=== PATIENT | female | born 1955 | race Caucasian/White ===

== ENCOUNTER 2019-01-26 07:58 | Outpatient (CLI) | payer OTHER | END 2019-01-26 08:06 | disposition home or self-care (01) | LOC: SONOGRAMA 07:58 → MAMO-SONO 08:15 | DX: M25.511 Pain in right shoulder (principal) ==

== ENCOUNTER 2022-05-15 08:14 | Outpatient (CLI) | payer OTHER | END 2022-05-15 08:16 | disposition home or self-care (01) | LOC: NUCLEAR 08:14 | PROVIDERS: ATTEND Thoracic Surgery (Cardiothoracic Vascular Surgery) | DX: I73.9 Peripheral vascular disease, unspecified (principal) ==

== ENCOUNTER 2025-01-23 10:07 | Outpatient (CLI) | payer OTHER ==
[~2025-01-23 10:07] MED LIST: ALTACE2.5 MG; FOLIC ACID0.8 M1; METHOTREXATE; PRENISONE; VALSARTAN80 MG; VITAL-D RX TAB1 EACH
[2025-01-23 12:37] LABS: HEMATOCRIT 40.6 % (36.0-45.00); HEMOGLOBIN 13.1 g/dL (12.0-15.00); MEAN CELL VOLUME 83.6 fL (80.00-100.00); MEAN CORPUSCULAR HGB CONC 32.2 g/dl (32.0-36.0); PLATELET COUNT 199 K/uL (150-450); RED BLOOD COUNT 4.85 M/uL (4.00-6.00); RED CELL DISTRIBUTION WIDTH 15.4 % (11.5-14.5)
[2025-01-23 12:44] LABS: COL EPI 99 SECONDS (82-175)
[2025-01-23 12:47] LABS: URINE APPEARANCE Clear; URINE BILIRRUBIN Negative (NEGATIVE); URINE BLOOD Negative; URINE COLOR Yellow; URINE GLUCOSE Negative (NEGATIVE); URINE KETONE Negative (NEGATIVE); URINE LEUKOCYTE Moderate; URINE NITRATE Negative; URINE PROTEIN Negative (NEGATIVE); URINE UROBILINOGEN 0.2 E.U./dl
[2025-01-23 12:48] LABS: URINE CAST 1.62 uL (0.0-1.40); URINE WBC 303.1 uL (0.0-23.2)
[2025-01-23 12:52] LABS: INR 0.94; PARTIAL THROMBOPLASTIN TIME 30.3 SECONDS (22.0-34.0); PROTHROMBIN TIME 10.3 SECONDS (9.0-11.5)
[2025-01-23 12:55] LABS: URINE RBC 1.6 uL (0.0-20.8)
[2025-01-23 13:35] LABS: ALBUMIN 3.7 gm/dL (3.4-5.0); BILIRUBIN TOTAL 0.3 mg/dL (0.3-1.2); CALCIUM 9.8 mg/dL (8.5-10.1); CREATININE SERUM 0.9 mg/dL (0.55-1.02); GFR 61.72; GLOBULINA 5.2 G/DL (2.4-3.5); POTASSIUM 3.92 mEq/L (3.5-5.1); TOTAL PROTEIN 8.9 gm/dL (6.4-8.2)
== END 2025-01-23 10:08 | disposition home or self-care (01) ==
LOC: LAB 10:07
PROVIDERS: ATTEND Orthopaedic Surgery
DX: D64.9 Anemia, unspecified (principal); E88.89 Other specified metabolic disorders; D68.8 Other specified coagulation defects; N39.0 Urinary tract infection, site not specified; Z22.322 Carrier or suspected carrier of Methicillin resistant Staphylococcus aureus; I10 Essential (primary) hypertension; Z76.89 Persons encountering health services in other specified circumstances; M12.262 Villonodular synovitis (pigmented), left knee

== ENCOUNTER 2025-02-06 09:11 | Outpatient (CLI) | payer OTHER | END 2025-02-06 09:20 | disposition home or self-care (01) | LOC: MAMO-SONO 09:11 | PROVIDERS: ATTEND Surgery | DX: C50.411 Malignant neoplasm of upper-outer quadrant of right female breast (principal); N60.11 Diffuse cystic mastopathy of right breast; N60.12 Diffuse cystic mastopathy of left breast ==